=== PATIENT | female | born 1985 | race Caucasian/White ===

== ENCOUNTER 2017-01-29 09:10 | Emergency (ER) | payer MEDICAID ==
[2017-01-29 09:20] VITALS: RESP 16; O2SAT 100; BMI 23.9
[2017-01-29] MEDS ORDERED: Sodium Chloride 0.9% 1,000 ML IV STA (09:38)
[2017-01-29] MEDS ORDERED: HYDROmorphone 0.5 mg/0.5 ml ISec IVP STA (09:42)
--- NOTE | 2017-01-29 09:54 | ED PDOC ---
HPI: Abdomen Time Seen by Provider: 01/29/17 09:30 Chief Complaint (Nursing): Abdominal Pain History Per: Patient History/Exam Limitations: no limitations Additional History Per: Patient Additional Complaint(s): 31 y.o F complaining of abdominal pain, nausea and 3 episodes of vomiting that began last night after eating Jonathan food and a cupcake. Abdominal pain is constant, diffuse and 7/10 intensity. Pt had a bypass gastric surgery last year and since then, her diet consists of ketogenic food. Pt denies recent travel, CP , SOB, diarrhea, acid reflux or rash. NKDA Medications: none. PMHx: diet controlled DM 2. PSH: bypass surgery 1 year ago. SHx: No tobacco, alcohol or recreational drugs. Sexually active with boyfriend, uses condoms as contraception. Past Medical History Vital Signs: Last Vital Signs Temp 98.0 F 01/29/17 09:20 Pulse 105 H 01/29/17 09:20 Resp 16 01/29/17 09:20 BP 157/73 H 01/29/17 09:20 Pulse Ox 100 01/29/17 11:10 - Medical History PMH: Anxiety, Diabetes Denies: Hepatitis, HIV, HTN, Seizures, Sexually Transmitted Disease - Surgical History Other surgeries: Gastric Bypass. - Family History Family History: States: Unknown Family Hx - Social History Current smoker - smoking cessation education provided: No Alcohol: None Drugs: Denies - Home Medications Home Medications: Ambulatory Orders Medication Instructions Recorded Acetaminophen/Oxycodone Hydr 1 tab PO Q6 PRN #15 tab 01/11/14 [Percocet 325 mg-5 mg] Omeprazole [Prilosec] 20 mg PO DAILY #30 cap 01/11/14 Insulin Glargine, Recombina 40 unit SC BID 11/02/15 [Lantus] Insulin Lispro [humALOG] 20 - 30 SC 11/02/15 oxyCODONE/Acetaminophen [Percocet 1 tab PO Q6 #10 tab 11/02/15 5/325 mg Tab] - Allergies Allergies/Adverse Reactions: Allergies Allergy/AdvReac Type Severity Reaction Status Date / Time No Known Allergies Allergy Verified 01/10/14 20:49 Review of Systems Constitutional: Negative for: Fever, Weakness ENT: Negative for: Ear Pain, Throat Pain Cardiovascular: Negative for: Chest Pain, Palpitations, Light Headedness Respiratory: Negative for: Cough, Shortness of Breath Gastrointestinal: Positive for: Nausea, Vomiting, Abdominal Pain. Negative for : Diarrhea, Constipation, Hematochezia, Hematemesis Genitourinary Female: Negative for: Dysuria, Frequency, Incontinence, Vaginal Discharge Physical Exam - Reviewed Vital Signs Reviewed: Yes - Physical Exam Appears: Positive for: Well, Uncomfortable Head Exam: Positive for: ATRAUMATIC, NORMAL INSPECTION Skin: Positive for: Normal Color Eye Exam: Positive for: Normal appearance ENT: Positive for: Normal ENT Inspection Neck: Positive for: Normal, Supple Cardiovascular/Chest: Positive for: Regular Rate, Rhythm Respiratory: Positive for: Normal Breath Sounds Gastrointestinal/Abdominal: Positive for: Bowel Sounds, Soft, Tenderness (( predominantly on RUQ)). Negative for: Mass, Distended, Guarding Neurologic/Psych: Positive for: Alert, Oriented - Laboratory Results Result Diagrams: 01/29/17 10:02 01/29/17 10:02 - ECG O2 Sat by Pulse Oximetry: 100 Medical Decision Making Medical Decision Makin31 y/o F with a PMHx of gastric bypass and diet-controlled DM 2 presenting with RUQ abdominal pain, nausea and vomiting. Plan: --US abdomen --CBC --CMP --Lipase --Glucose POC --Urine dipstick --Urinary BHCG qualitative --IV NSS 9% --Hydromorphone --Zofran 11:00 am Pt reports remarkable improvement of abdominal pain and nausea. Pt declined US abdomen, IV fluids and further testing. Pt desires to be discharged against medical advised. Pt signed petition. Disposition - Clinical Impression Clinical Impression: Abdominal pain - Disposition Disposition: Against Medical Advice Disposition Time: 11:09 Condition: STABLE Forms: [employer] ([place]ovenian)
[2017-01-29] MEDS ORDERED: HYDROmorphone 0.5 mg/0.5 ml ISec ONE (10:12)
[2017-01-29 10:25] LABS: BASO % 0.1 % (0.0-2.0); EOS % 0.2 % (0.0-4.0); HEMATOCRIT 40.4 % (34.0-47.0); LYMPH # 0.4 K/uL (1.0-4.3); LYMPH % 9.4 % (20.0-40.0); MEAN CELL VOLUME 79.5 fl (81.0-99.0); MEAN CORPUSCULAR HEMOGLOBIN 25.2 pg (27.0-31.0); MEAN CORPUSCULAR HGB CONC 31.7 g/dL (33.0-37.0); MONO # 0.2 K/uL (0.0-0.8); MONO % 3.3 % (0.0-10.0); NEUT # 4.2 K/uL (1.8-7.0); NRBC % 0.1 % (0.0-0.0); PLATELET COUNT 274 K/uL (130-400)
[2017-01-29 10:27] LABS: WHITE BLOOD COUNT 4.8 K/uL (4.8-10.8)
[2017-01-29 10:34] LABS: ALB/GLOB RATIO 1.4 (1.0-2.1); ALKALINE PHOSPHATASE 49 U/L (38-126); ALT/SGPT 51 U/L (9-52); AST/SGOT 34 U/L (14-36); BILIRUBIN,TOTAL 0.5 mg/dl (0.2-1.3); BLOOD UREA NITROGEN 14 mg/dl (7-17); CALCIUM 9.1 mg/dL (8.4-10.2); CARBON DIOXIDE 25 mmol/L (22-30); CHLORIDE 103 mmol/L (98-107); GFR AFRICAN-AMERICAN > 60; GLUCOSE,RANDOM 117 mg/dL (65-105); LIPASE 59 U/L (23-300); SODIUM 141 mmol/l (132-148); TOTAL PROTEIN 7.9 G/DL (6.3-8.2)
[2017-01-29 11:03] LABS: RBC URINE 1 /hpf (0-3); URINE BILIRUBIN NEGATIVE (NEGATIVE); URINE BLOOD NEGATIVE (NEGATIVE); URINE COLOR YELLOW (YELLOW); URINE GLUCOSE (UA) NEG (Normal); URINE KETONE NEGATIVE (NEGATIVE); URINE LEUKOCYTE ESTERASE NEG Leu/uL (Negative); URINE PROTEIN NEGATIVE (NEGATIVE); URINE UROBILINOGEN 0.2-1.0 mg/dL (0.2-1.0); WBC URINE < 1 /hpf (0-5)
[2017-01-29 11:15] VITALS: BP 90/61; PULSE 81; TEMP 98.7
[2017-01-29 12:40] LABS: EOSINOPHIL 1 % (0-7); NEUTROPHIL 86 % (42-75); TOTAL CELLS COUNTED 100
[2017-01-29 12:41] LABS: LARGE PLATELETS PRESENT
== END 2017-01-29 11:26 | disposition home or self-care (01) ==
LOC: H.ER 09:10
DX: R10.9 Unspecified abdominal pain (principal); R11.2 Nausea with vomiting, unspecified; E11.9 Type 2 diabetes mellitus without complications; F41.9 Anxiety disorder, unspecified
CPT/HCPCS: 80053; 81003; 81025; 83690; 85025; 99283; J2405

== ENCOUNTER 2017-08-04 15:11 | Emergency (ER) | payer SELFPAY ==
[2017-08-04 15:11] VITALS: BMI 23.9
[2017-08-04 15:32] VITALS: BP 112/79; PULSE 74; RESP 16; TEMP 97.9; O2SAT 100
[2017-08-04] MEDS ORDERED: Tdap Vaccine 0.5 ml Vial (10-64 yrs) IM ONE (17:56)
[2017-08-04] MEDS ORDERED: Tetanus/Diphtheria Toxoids 0.5 ml Syringe IM ONE (18:01)
--- NOTE | 2017-08-04 18:18 | ED PDOC ---
HPI: General Adult Time Seen by Provider: 08/04/17 16:10 Chief Complaint (Nursing): Finger,Hand,&Wrist Past Medical History Vital Signs: Last Vital Signs Temp 97.9 F 08/04/17 15:30 Pulse 74 08/04/17 15:30 Resp 16 08/04/17 15:30 BP 112/79 08/04/17 15:30 Pulse Ox 100 08/04/17 15:30 - Medical History PMH: Anxiety, Diabetes Denies: Hepatitis, HIV, HTN, Seizures, Sexually Transmitted Disease - Family History Family History: States: Unknown Family Hx - Home Medications Home Medications: Ambulatory Orders Medication Instructions Recorded Acetaminophen/Oxycodone Hydr 1 tab PO Q6 PRN #15 tab 01/11/14 [Percocet 325 mg-5 mg] Omeprazole [Prilosec] 20 mg PO DAILY #30 cap 01/11/14 Insulin Glargine, Recombina 40 unit SC BID 11/02/15 [Lantus] Insulin Lispro [humALOG] 20 - 30 SC 11/02/15 oxyCODONE/Acetaminophen [Percocet 1 tab PO Q6 #10 tab 11/02/15 5/325 mg Tab] - Allergies Allergies/Adverse Reactions: Allergies Allergy/AdvReac Type Severity Reaction Status Date / Time No Known Allergies Allergy Verified 08/04/17 15:29 - ECG O2 Sat by Pulse Oximetry: 100 Disposition - Clinical Impression Clinical Impression: Finger laceration, Tetanus toxoid vaccination administered at current visit - Patient ED Disposition Is Patient to be Admitted: No - Disposition Disposition: Routine/Home Disposition Time: 18:17 Condition: STABLE Instructions: Common Finger Injuries (DC)
== END 2017-08-04 18:43 | disposition home or self-care (01) ==
LOC: H.ER 15:11
DX: S61.219A Laceration without foreign body of unspecified finger without damage to nail, initial encounter (principal); W26.8XXA Contact with other sharp object(s), not elsewhere classified, initial encounter; Y92.89 Other specified places as the place of occurrence of the external cause; E11.9 Type 2 diabetes mellitus without complications; F41.9 Anxiety disorder, unspecified; Z79.4 Long term (current) use of insulin